=== PATIENT | female | born 1965 | race Hispanic/Latino ===

== ENCOUNTER 2020-06-22 20:52 | Emergency (ER) | payer MEDICARE ==
[2020-06-22] MEDS ORDERED: HYDRALAZINE HCL 25 MG TABLET ONE (21:46)
[2020-06-22 21:52] LABS: BASOPHILS % (AUTO) 0.9 % (0.0-5.0); LYMPHOCYTES % (AUTO) 17.8 % (21.0-51.0); MEAN CORPUSCULAR HEMOGLOBIN 31.4 pg (27.0-33.0); MEAN CORPUSCULAR HGB CONC 32.9 g/dL (32.0-36.0); MEAN CORPUSCULAR VOLUME 95.6 fL (79-99); NEUTROPHILS % (AUTO) 69.9 % (40.0-77.0); PLATELET COUNT (AUTO) 316 K/uL (130-400); RED BLOOD CELL COUNT(AUTO) 2.93 MIL/uL (4.00-5.50); RED CELL DISTRIBUTION WIDTH 14.2 % (11.0-15.5); WHITE BLOOD COUNT (AUTO) 7.4 K/uL (4.8-10.8)
[2020-06-22 22:00] LABS: CREATININE 6.3 mg/dL (0.5-1.5); POTASSIUM 4.3 mmol/L (3.5-5.1)
[2020-06-22 22:04] LABS: ALBUMIN 3.5 g/dL (3.5-5.0); BILIRUBIN,TOTAL 0.5 mg/dL (0.2-1.0); TOTAL PROTEIN, SERUM 6.7 g/dL (6.0-8.3)
== END 2020-06-23 01:13 | disposition home or self-care (01) ==
LOC: EDH 20:52
DX: J90 Pleural effusion, not elsewhere classified (principal); I12.0 Hypertensive chronic kidney disease with stage 5 chronic kidney disease or end stage renal disease; E11.22 Type 2 diabetes mellitus with diabetic chronic kidney disease; N18.6 End stage renal disease; Z99.2 Dependence on renal dialysis; Z98.51 Tubal ligation status
CPT/HCPCS: 36415; 71045; 80053; 84484; 85025; 93005

== ENCOUNTER 2021-03-22 08:56 | Emergency (ER) | payer MEDICARE ==
[2021-03-22 09:33] LABS: BASOPHILS % (AUTO) 1.3 % (0.0-5.0); EOSINOPHILS % (AUTO) 2.1 % (0.0-8.0); HEMATOCRIT 37.4 % (36-48); LYMPHOCYTES % (AUTO) 17.5 % (21.0-51.0); MEAN CORPUSCULAR HEMOGLOBIN 29.9 pg (27.0-33.0); MEAN CORPUSCULAR HGB CONC 30.7 g/dL (32.0-36.0); MEAN CORPUSCULAR VOLUME 97.1 fL (79-99); MONOCYTES % (AUTO) 7.2 % (3.0-13.0); NEUTROPHILS % (AUTO) 71.5 % (40.0-77.0); PLATELET COUNT (AUTO) 254 K/uL (130-400); RED BLOOD CELL COUNT(AUTO) 3.85 MIL/uL (4.00-5.50); WHITE BLOOD COUNT (AUTO) 7.2 K/uL (4.8-10.8)
[2021-03-22 09:46] LABS: INR 1.05 (0.85-1.15); PROTHROMBIN TIME 11.4 SEC (9.6-11.6)
[2021-03-22 09:47] LABS: PARTIAL THROMBOPLASTIN TIME 26.1 SEC (26.3-35.5)
[2021-03-22 09:53] LABS: ALBUMIN 3.7 g/dL (3.5-5.0); BILIRUBIN,TOTAL 0.8 mg/dL (0.2-1.0); CREATININE 6.1 mg/dL (0.5-1.5); TOTAL PROTEIN, SERUM 7.3 g/dL (6.0-8.3)
[2021-03-22 10:01] LABS: POTASSIUM 6.4 mmol/L (3.5-5.1)
== END 2021-03-22 10:45 | disposition home or self-care (01) ==
LOC: EDH 08:56
DX: T82.838A Hemorrhage due to vascular prosthetic devices, implants and grafts, initial encounter (principal); I12.0 Hypertensive chronic kidney disease with stage 5 chronic kidney disease or end stage renal disease; E11.22 Type 2 diabetes mellitus with diabetic chronic kidney disease; N18.6 End stage renal disease; Z99.2 Dependence on renal dialysis; Z98.51 Tubal ligation status; Z87.891 Personal history of nicotine dependence
CPT/HCPCS: 36415; 80053; 85025; 85610; 85730

== ENCOUNTER 2022-02-28 05:30 | Day surgery (SDC) | payer OTHER, MEDICARE ==
[2022-02-24 11:30] VITALS: BP 164/76
[2022-02-24 11:47] LABS: BASOPHILS % (AUTO) 0.7 % (0.0-5.0); EOSINOPHILS % (AUTO) 3.2 % (0.0-8.0); HEMATOCRIT 38.8 % (36-48); LYMPHOCYTES % (AUTO) 17.4 % (21.0-51.0); MEAN CORPUSCULAR VOLUME 100.3 fL (79-99); MONOCYTES % (AUTO) 10.5 % (3.0-13.0); NEUTROPHILS % (AUTO) 67.8 % (40.0-77.0); PLATELET COUNT (AUTO) 174 K/uL (130-400); RED BLOOD CELL COUNT(AUTO) 3.87 MIL/uL (4.00-5.50); RED CELL DISTRIBUTION WIDTH 19.6 % (11.0-15.5); WHITE BLOOD COUNT (AUTO) 5.4 K/uL (4.8-10.8)
[2022-02-28] VITALS (18 sets, daily range): BP systolic 142–169; BP diastolic 57–77
[~2022-02-28] VITALS: Ht 167.6 cm; Wt 58.7 kg
[~2022-02-28 05:30] MED LIST: ALPR2TAB7 PO; ATOR40TA71 PO; CARV25TA PO; CEFAZOLIN SODIUM 2 GM VIAL IV SCH; CHOL100020 PO; FOLI0.8T22 PO; HYDR100T27 PO; SEVE800T7 PO; SODI10PO2 PO; TRAZ-185 PO; VITA400C79 PO
[2022-02-28] MEDS ORDERED: 0.9%NACL 1000ML 0 ML IV ONE (07:04)
[2022-02-28] MEDS ORDERED: 0.9% NACL 500ML IV.SOLN 500 ML IV ONE (07:05)
[2022-02-28 07:21] LABS: CREATININE 4.4 mg/dL (0.5-1.5); POTASSIUM 3.5 mmol/L (3.5-5.1)
[2022-02-28] MEDS ORDERED: HYDROMORPHONE 1 MG INJ ONE (11:44)
[2022-02-28] MEDS ORDERED: FAMOTIDINE 20MG VIAL IV ONE (11:44)
[2022-02-28] MEDS ORDERED: LIDOCAINE PF 100MG/5ML (2%) SYRINGE 5ML ONE (11:50)
[2022-02-28] MEDS ORDERED: GLYCOPYRROLATE 1 MG/5 ML SYRINGE ONE (11:50)
[2022-02-28] MEDS ORDERED: PROPOFOL 10 MG/ML 20ML VIAL IV ONE (11:50)
[2022-02-28] MEDS ORDERED: FENTANYL CITRATE PF 50 MCG/1 ML 5ML AMP IV ONE (11:51)
[2022-02-28] MEDS ORDERED: ROCURONIUM 10MG/1ML SYR 10 MG/ML ML ONE (11:51)
[2022-02-28] MEDS ORDERED: ONDANSETRON 4MG INJ ONE (12:00)
[2022-02-28] MEDS ORDERED: NEOSTIGMINE 5MG/5ML SYR IV ONE (12:34)
== END 2022-02-28 15:00 | disposition home or self-care (01) ==
LOC: DAH 05:30
PROVIDERS: ATTEND Obstetrics & Gynecology
DX: R19.00 Intra-abdominal and pelvic swelling, mass and lump, unspecified site (principal); N95.0 Postmenopausal bleeding; I10 Essential (primary) hypertension; I25.10 Atherosclerotic heart disease of native coronary artery without angina pectoris; E78.5 Hyperlipidemia, unspecified; E11.9 Type 2 diabetes mellitus without complications; K21.9 Gastro-esophageal reflux disease without esophagitis; Z95.5 Presence of coronary angioplasty implant and graft; Z98.51 Tubal ligation status; Z98.890 Other specified postprocedural states; Z83.3 Family history of diabetes mellitus; Z79.899 Other long term (current) drug therapy
CPT/HCPCS: 36415 ×2; 49322; 80048; 82948 ×2; 85025; 86850 ×2; 86900 ×2; 86901 ×2; 87635; 88112; 88305; 93005; A4215 ×2; A4221; A4222; A4223; A4344; A4351; A4606; A4649 ×2; A4663; A6260; C1769 ×2; C9803; J1170; J2001; J2405; J2704; J2710; J3010; J3490 ×2; J7040; J0690; J7030

== ENCOUNTER 2022-09-04 08:48 | Emergency (ER) | payer OTHER, MEDICARE ==
[~2022-09-04 08:48] MED LIST changes: -CEFAZOLIN SODIUM 2 GM VIAL IV SCH
[2022-09-04] MEDS ORDERED: TRAMADOL HCL 50 MG TABLET PO ONE (09:00)
[2022-09-04] MEDS ORDERED: TRAMADOL HCL 50 MG TABLET ONE (09:00)
[2022-09-04 10:01] VITALS: BP 144/72
== END 2022-09-04 10:19 | disposition home or self-care (01) ==
LOC: EDH 08:48
DX: S70.02XA Contusion of left hip, initial encounter (principal); S70.12XA Contusion of left thigh, initial encounter; I12.0 Hypertensive chronic kidney disease with stage 5 chronic kidney disease or end stage renal disease; E11.22 Type 2 diabetes mellitus with diabetic chronic kidney disease; E78.00 Pure hypercholesterolemia, unspecified; Z99.2 Dependence on renal dialysis; W01.0XXA Fall on same level from slipping, tripping and stumbling without subsequent striking against object, initial encounter; Y93.89 Activity, other specified; Y92.89 Other specified places as the place of occurrence of the external cause; Y99.8 Other external cause status
CPT/HCPCS: 73502